=== PATIENT | female | born 1985 | race American Indian/Alaskan Native ===

== ENCOUNTER 2017-01-13 08:57 | Emergency (ER) | payer MEDICAID ==
[2017-01-13 09:17] VITALS: BP 148/108
[2017-01-13] MEDS ORDERED: MOTRIN PO ONE (10:00)
--- NOTE | 2017-01-13 10:08 | Emergency Department Report ---
ED ENT HPI - General Chief complaint: Dental/Oral Stated complaint: DENTAL PAIN Source: patient Mode of arrival: Ambulatory Limitations: No Limitations - History of Present Illness Initial comments: 31-year-old -[place] female with a past medical history of hypertension comes in today for complaint of tooth pain for about a week. Patient reports she has a history of dental caries and broken teeth. She reports she is also run out of her blood pressure medication which is Norvasc 10 mg one tablet by mouth daily. Patient reports that the swelling started last night and she feels that she may have an infection. She denies any fever chills no nausea vomiting she's able to eat. MD complaint: tooth pain -: Gradual Location: tooth # (17,18,32) Severity scale (0 -10): 6 Quality: aching, sharp Consistency: constant Improves with: none Worsens with: eating Associated Symptoms: gum swelling, toothache - Related Data Previous Rx's Medication Instructions Recorded Last Taken Type HYDROcodone/APAP 10-325 [[place] 1 each PO Q6HR PRN #20 tablet 06/09/15 Unknown Rx 10/325] Clindamycin [Clindamycin CAP] 300 mg PO Q6H #28 capsule 01/13/17 Unknown Rx Ibuprofen [Motrin 600 MG tab] 600 mg PO ONCE #30 tablet 01/13/17 Unknown Rx amLODIPine [Norvasc] 10 mg PO QHS #30 tab 01/13/17 Unknown Rx Allergies Allergy/AdvReac Type Severity Reaction Status Date / Time No Known Allergies Allergy Unverified 06/09/15 08:32 ED Dental HPI - General Chief complaint: Dental/Oral Stated complaint: DENTAL PAIN Source: patient Mode of arrival: Ambulatory Limitations: No Limitations - Related Data Previous Rx's Medication Instructions Recorded Last Taken Type HYDROcodone/APAP 10-325 [[place] 1 each PO Q6HR PRN #20 tablet 06/09/15 Unknown Rx 10/325] Clindamycin [Clindamycin CAP] 300 mg PO Q6H #28 capsule 01/13/17 Unknown Rx Ibuprofen [Motrin 600 MG tab] 600 mg PO ONCE #30 tablet 01/13/17 Unknown Rx amLODIPine [Norvasc] 10 mg PO QHS #30 tab 01/13/17 Unknown Rx Allergies Allergy/AdvReac Type Severity Reaction Status Date / Time No Known Allergies Allergy Unverified 06/09/15 08:32 ED Review of Systems ROS: Stated complaint: DENTAL PAIN Other details as noted in HPI Constitutional: denies: chills, fever Eyes: denies: eye pain, eye discharge, vision change ENT: dental pain Respiratory: denies: cough, shortness of breath, wheezing Cardiovascular: denies: chest pain, palpitations Endocrine: no symptoms reported Gastrointestinal: denies: abdominal pain, nausea, diarrhea Genitourinary: denies: urgency, dysuria, discharge Musculoskeletal: denies: back pain, joint swelling, arthralgia Skin: denies: rash, lesions Neurological: denies: headache, weakness, paresthesias ED Past Medical Hx - Past Medical History Previous Medical History?: Yes Hx Hypertension: Yes (PIH) - Surgical History Past Surgical History?: Yes Additional Surgical History: UTERINE SURGERY (HAD DOUBLE UTERUS). ECTOPIC -LEFT TUBE REMOVED - Social History Smoking Status: Current Every Day Smoker Substance Use Type: Non Opiate Pain, Prescribed - Medications Home Medications: Home Medications Medication Instructions Recorded Confirmed Last Taken Type HYDROcodone/APAP 10-325 [[place] 1 each PO Q6HR PRN #20 tablet 06/09/15 Unknown Rx 10/325] Clindamycin [Clindamycin CAP] 300 mg PO Q6H #28 capsule 01/13/17 Unknown Rx Ibuprofen [Motrin 600 MG tab] 600 mg PO ONCE #30 tablet 01/13/17 Unknown Rx amLODIPine [Norvasc] 10 mg PO QHS #30 tab 01/13/17 Unknown Rx ED Physical Exam - General Limitations: No Limitations General appearance: alert, in no apparent distress - Head Head exam: Present: atraumatic - Eye Eye exam: Present: normal appearance, PERRL, EOMI - ENT ENT exam: Present: normal exam, mucous membranes moist - Expanded ENT Exam Expanded Teeth exam: Present: dental caries, dental tenderness # (17,18 and 32 broken to the gumline), gingival enlargement Throat exam: Positive: normal inspection - Cardiovascular Cardiovascular Exam: Present: regular rate, normal rhythm, normal heart sounds ED Course Vital Signs 01/13/17 09:13 Temperature 98.2 F Pulse Rate 80 Respiratory 18 Rate Blood Pressure 148/108 O2 Sat by Pulse 100 Oximetry ED Medical Decision Making - Medical Decision Making This patient has been evaluated by this provider in fast track. Discussed patient that I will place her on ibuprofen 600 mg 1 tablet by mouth 3 times a day when necessary for pain as well as clindamycin 300 mg 1 tablet by mouth daily at bedtime dispense 28 with no refills. Also discussed patient with her blood pressure I would refill her amlodipine 10 mg 1 tablet by mouth daily at bedtime. I would give her one refill and have a referral follow-up with her primary care provider. As well as I would give her a list of community dentist that she is able to follow up with. Patient verbalized understanding Critical care attestation.: If time is entered above; I have spent that time in minutes in the direct care of this critically ill patient, excluding procedure time. ED Disposition Clinical Impression: Tooth abscess, Pain due to dental caries Disposition: DISCHARGED TO HOME OR SELFCARE Is pt being admited?: No Does the pt Need Aspirin: No Condition: Stable Instructions: Dental Caries (ED), Dental Abscess (ED) Additional Instructions: These take the antibiotics as prescribed as well as pain medicine. Please continue with the amlodipine refill prescription as well as follow-up which are primary care provider for chronic disease management. I have listed several dentists that she may be interested in for follow-up with the dental issues. Prescriptions: amLODIPine [Norvasc] 10 mg PO QHS #30 tab Clindamycin [Clindamycin CAP] 300 mg PO Q6H #28 capsule Ibuprofen [Motrin 600 MG tab] 600 mg PO ONCE #30 tablet Referrals: PRIMARY CARE, [Primary Care Provider] - 3-5 Days Forms: Work/School Release Form(ED)
== END 2017-01-13 10:19 | disposition home or self-care (01) ==
LOC: ED 08:57
DX: K04.7 Periapical abscess without sinus (principal); K02.9 Dental caries, unspecified; I10 Essential (primary) hypertension; F17.200 Nicotine dependence, unspecified, uncomplicated
CPT/HCPCS: 99282

== ENCOUNTER 2020-02-13 09:15 | Outpatient (CLI) | payer MEDICAID ==
[2020-02-13] MEDS ORDERED: BETAMET ACET/BETAMET NA PH 6 MG/ML INJ 5 ML MDV IM ONE ×2 (09:19→09:22)
== END 2020-02-13 09:36 | disposition home or self-care (01) ==
LOC: TRG 09:15 → APU 09:16 → TRG 09:36
PROVIDERS: ATTEND Obstetrics & Gynecology
DX: O36.5920 Maternal care for other known or suspected poor fetal growth, second trimester, not applicable or unspecified (principal); O47.02 False labor before 37 completed weeks of gestation, second trimester; O99.332 Smoking (tobacco) complicating pregnancy, second trimester; F17.200 Nicotine dependence, unspecified, uncomplicated; Z3A.23 23 weeks gestation of pregnancy
CPT/HCPCS: 96372; J0702

== ENCOUNTER 2020-02-14 09:56 | Outpatient (CLI) | payer MEDICAID ==
[2020-02-14] MEDS ORDERED: BETAMET ACET/BETAMET NA PH 6 MG/ML INJ 5 ML MDV IM NR (10:18)
[2020-02-14 10:38] VITALS: BP 137/96
== END 2020-02-14 10:45 | disposition home or self-care (01) ==
LOC: APU 09:56 → TRG 09:56
PROVIDERS: ATTEND Obstetrics & Gynecology
DX: O47.02 False labor before 37 completed weeks of gestation, second trimester (principal); O99.512 Diseases of the respiratory system complicating pregnancy, second trimester; J45.909 Unspecified asthma, uncomplicated; O10.912 Unspecified pre-existing hypertension complicating pregnancy, second trimester; O99.332 Smoking (tobacco) complicating pregnancy, second trimester; F17.200 Nicotine dependence, unspecified, uncomplicated; Z3A.23 23 weeks gestation of pregnancy
CPT/HCPCS: 96372; J0702

== ENCOUNTER 2021-06-25 09:14 | Emergency (ER) | payer OTHER, MEDICAID ==
[2021-06-25 10:01] VITALS: BP 173/123
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
== END 2021-06-25 11:20 | disposition home or self-care (01) ==
LOC: ED 09:14
DX: M79.18 Myalgia, other site (principal); V79.9XXA Bus occupant (driver) (passenger) injured in unspecified traffic accident, initial encounter; Y93.89 Activity, other specified; Y92.89 Other specified places as the place of occurrence of the external cause; Y99.8 Other external cause status
CPT/HCPCS: 99282

== ENCOUNTER 2021-12-29 08:32 | Emergency (ER) | payer MEDICAID, OTHER ==
--- NOTE | 2021-12-29 09:27 | Emergency Department Report ---
ED General Adult HPI - General Chief complaint: High BP Stated complaint: VISION BLURR/BP HIGH Source: patient Mode of arrival: Ambulatory Limitations: No Limitations - History of Present Illness Initial comments: 36 yo bf with pmh of htn presents to the ed for evaluation of 3 day history of blurred vision. She states that while standing at work 3 days ago, she developed blurred vision and it has been persistent since then. She denies any changes in speech or gait. She states that she had some pain to her bilateral hips whle walking this am. She states that while standing at work yesterday, she had some dizziness and tingling in her left lower leg. MD Complaint: Blurred vision -: Gradual, days(s) (3) Associated Symptoms: headaches. denies: chest pain, cough, diaphoresis, fever/chills, loss of appetite, malaise, nausea/vomiting, rash, seizure, shortness of breath, syncope, weakness - Related Data Previous Rx's Medication Instructions Recorded Last Taken Type HYDROcodone/APAP 10-325 [[place] 1 each PO Q6HR PRN #20 tablet 06/09/15 Unknown Rx 10/325] Clindamycin [Clindamycin CAP] 300 mg PO Q6H #28 capsule 01/13/17 Unknown Rx Ibuprofen [Motrin 600 MG tab] 600 mg PO ONCE #30 tablet 01/13/17 Unknown Rx amLODIPine 10 mg PO QHS #30 tab 01/13/17 Unknown Rx Ferrous Sulfate [Ferrous Sulfate 324 mg PO BID #90 tablet. 02/19/20 Unknown Rx 324 MG] Ibuprofen [Motrin 600 MG tab] 600 mg PO Q6H #30 tablet 02/19/20 Unknown Rx labetaloL [Labetalol 200mg TAB] 200 mg PO TID #90 tablet 02/19/20 Unknown Rx oxyCODONE /ACETAMINOPHEN [Percocet 1 tab PO Q6H PRN #30 tablet 02/19/20 Unknown Rx 5/325 mg] Allergies Allergy/AdvReac Type Severity Reaction Status Date / Time No Known Allergies Allergy Unverified 06/09/15 08:32 ED Review of Systems ROS: Stated complaint: VISION BLURR/BP HIGH Other details as noted in HPI ED Past Medical Hx - Past Medical History Hx Hypertension: Yes (CHTN SINCE 2009) Hx Diabetes: No Hx Deep Vein Thrombosis: No Hx Renal Disease: Yes Hx Sickle Cell Disease: No Hx Seizures: No Hx Asthma: Yes (childhood) Hx HIV: No - Surgical History Additional Surgical History: UTERINE SURGERY (HAD DOUBLE UTERUS). ECTOPIC -LEFT TUBE REMOVED - Social History Smoking Status: Current Every Day Smoker Substance Use Type: Alcohol - Medications Home Medications: Home Medications Medication Instructions Recorded Confirmed Last Taken Type HYDROcodone/APAP 10-325 [[place] 1 each PO Q6HR PRN #20 tablet 06/09/15 Unknown Rx 10/325] Clindamycin [Clindamycin CAP] 300 mg PO Q6H #28 capsule 01/13/17 Unknown Rx Ibuprofen [Motrin 600 MG tab] 600 mg PO ONCE #30 tablet 01/13/17 Unknown Rx amLODIPine 10 mg PO QHS #30 tab 01/13/17 Unknown Rx Ferrous Sulfate [Ferrous Sulfate 324 mg PO BID #90 tablet.dr 02/19/20 Unknown Rx 324 MG] Ibuprofen [Motrin 600 MG tab] 600 mg PO Q6H #30 tablet 02/19/20 Unknown Rx labetaloL [Labetalol 200mg TAB] 200 mg PO TID #90 tablet 02/19/20 Unknown Rx oxyCODONE /ACETAMINOPHEN [Percocet 1 tab PO Q6H PRN #30 tablet 02/19/20 Unknown Rx 5/325 mg] ED Physical Exam - General Limitations: No Limitations ED Course Vital Signs 12/29/21 12/29/21 09:21 14:35 Temperature 98.4 F Pulse Rate 91 H 91 H Respiratory 16 Rate Blood Pressure 142/105 Blood Pressure 134/104 [Right] O2 Sat by Pulse 99 Oximetry ED Medical Decision Making - Lab Data Result diagrams: 12/29/21 10:06 12/29/21 10:06 Critical care attestation.: If time is entered above; I have spent that time in minutes in the direct care of this critically ill patient, excluding procedure time. ED Disposition Clinical Impression: Left against medical advice Disposition: 07 LEFT AGAINST MEDICAL ADVICE Is pt being admited?: No Condition: Stable Referrals: BHANU OSHEA MD [Primary Care Provider] - 3-5 Days
[2021-12-29 10:30] LABS: Hematocrit 35.2 % (30.3-42.9); Hemoglobin 12.3 gm/dl (10.1-14.3); Mean Corpuscular HGB Conc 35 % (30-34); Mean Corpuscular Volume 100 fl (79-97); Platelet Count 146 K/mm3 (140-440); Red Blood Count 3.51 M/mm3 (3.65-5.03); Red Cell Distribution Width 12.9 % (13.2-15.2)
--- NOTE | 2021-12-29 10:30 | Cat Scan Report ---
CT HEAD WITHOUT CONTRAST INDICATION / CLINICAL INFORMATION: blurred vision. TECHNIQUE: Axial imaging performed from the skull apex through the skull base without the use of cont rast. Sagittal and coronal reformatted images. All CT scans at this location are performed using CT dose reduction for ALARA by means of automated exposure control. COMPARISON: None available. FINDINGS: CEREBRAL PARENCHYMA: No significant abnormality. No acute territorial infarct. HEMORRHAGE: None. EXTRA-AXIAL SPACES: Normal in size and morphology for the patient's age. VENTRICULAR SYSTEM: Normal in size and morphology for the patient's age. MIDLINE SHIFT OR HERNIATION: None. CEREBELLUM / BRAINSTEM: No significant abnormality. CALVARIUM: No significant abnormality. ORBITS: Normal as visualized. PARANASAL SINUSES / MASTOID AIR CELLS: Normal as visualized. SOFT TISSUES of HEAD: No significant abnormality. ADDITIONAL FINDINGS: None. IMPRESSION: Cranial CT scan within normal limits. No abnormality identified. Signer Name: Jayme Hatch Jr, MD Signed: 12/29/2021 10:25 AM Workstation Name: [id number]
[2021-12-29 11:06] LABS: Alanine Aminotransferase 63 units/L (7-56); Albumin 4.3 g/dL (3.9-5); BUN/Creatinine Ratio 8; Blood Urea Nitrogen 9 mg/dL (7-17); Calcium 9.4 mg/dL (8.4-10.2); Hemolysis Index 7
--- NOTE | 2021-12-29 12:49 | Ultrasound Report ---
ULTRASOUND OBSTETRIC INDICATION: , elevated bp. TECHNIQUE: Transabdominal and Transvaginal. COMPARISON: None available. 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 GESTATIONAL SAC: Well-defined oval shape and intrauterine in location in the right uterine horn. The sac measures up to 0.95 cm, consistent with an estimated age of 5 weeks 5 days. YOLK SAC: Not seen. EMBRYO/FETUS: Not seen. ADNEXA: A 1.5 cm dominant follicle versus corpus luteal cyst is seen in the right ovary. No other sig nificant abnormality. FREE FLUID: None. ADDITIONAL FINDINGS: None. 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 Please correlate with beta hCG level. Close clinical and imaging follow-up is re commended. Signer Name: David Lozano MD Signed: 12/29/2021 12:42 PM Workstation Name: [id number]
[2021-12-29 14:35] VITALS: BP 134/104
--- NOTE | 2022-01-01 13:59 | Electrocardiograph Report ---
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
== END 2021-12-29 16:50 | disposition left against medical advice (07) ==
LOC: ED 08:32
DX: Z32.01 Encounter for pregnancy test, result positive (principal); H53.8 Other visual disturbances; R51.9 Headache, unspecified; I10 Essential (primary) hypertension; J45.909 Unspecified asthma, uncomplicated; F17.200 Nicotine dependence, unspecified, uncomplicated; Z72.89 Other problems related to lifestyle; Z79.899 Other long term (current) drug therapy
CPT/HCPCS: 36415; 70450; 76801; 76817; 80053; 84484; 84703; 85027; 93005; 99284; J3490; 99283

== ENCOUNTER 2022-01-12 15:33 | Emergency (ER) | payer MEDICAID ==
[2022-01-12] MEDS ORDERED: hydrALAZINE 20 MG/1 ML INJ IV ONE (16:28)
--- NOTE | 2022-01-12 16:28 | Emergency Department Report ---
ED General Adult HPI - General Chief complaint: High BP Stated complaint: HIGH BLOOD PRESSURE PUI?: No Time Seen by Provider: 01/12/22 15:45 Source: EMS Mode of arrival: Stretcher Limitations: No Limitations - History of Present Illness Initial comments: Patient is a 36-year-old female that presents emergency room with complaints of elevated blood pressure. Patient states she is 5 weeks . Patient states she went to the clinic and they sent to the urgent care because her blood pressure was so high. Patient states she has not taken blood pressure medications for 6 months. Patient states that he does not have any chest pain or shortness of breath. Patient denies headache. Patient denies blurry vision. Patient denies fever and chills. Patient states she needs to get her blood pressure down so she can go through with the . Patient states she took labetalol and Norvasc in the past. Patient denies recent travel. Patient denies recent international travel. Patient denies exposure to the novel coronavirus. Patient denies sick contacts. Patient denies fever and chills. Patient denies cough. Patient denies diarrhea. Patient denies coming in contact with anybody with symptoms of the novel coronavirus. -: Sudden Severity scale (0 -10): 0 Improves with: medication Worsens with: eating, movement Associated Symptoms: denies other symptoms. denies: confusion, chest pain, cough, diaphoresis, fever/chills, headaches, loss of appetite, malaise, nausea/vomiting, seizure, shortness of breath, syncope, weakness - Related Data Previous Rx's Medication Instructions Recorded Last Taken Type HYDROcodone/APAP 10-325 [Mon[place]gut 1 each PO Q6HR PRN #20 tablet 06/09/15 Unknown Rx 10/325] Clindamycin [Clindamycin CAP] 300 mg PO Q6H #28 capsule 01/13/17 Unknown Rx Ibuprofen [Motrin 600 MG tab] 600 mg PO ONCE #30 tablet 01/13/17 Unknown Rx amLODIPine 10 mg PO QHS #30 tab 01/13/17 Unknown Rx Ferrous Sulfate [Ferrous Sulfate 324 mg PO BID #90 tablet. 02/19/20 Unknown Rx 324 MG] Ibuprofen [Motrin 600 MG tab] 600 mg PO Q6H #30 tablet 02/19/20 Unknown Rx oxyCODONE /ACETAMINOPHEN [Percocet 1 tab PO Q6H PRN #30 tablet 02/19/20 Unknown Rx 5/325 mg] labetaloL [Labetalol 200mg TAB] 200 mg PO BID #30 tablet 01/12/22 Unknown Rx Allergies Allergy/AdvReac Type Severity Reaction Status Date / Time No Known Allergies Allergy Verified 01/12/22 15:41 ED Review of Systems ROS: Stated complaint: HIGH BLOOD PRESSURE Other details as noted in HPI Constitutional: denies: chills, fever Eyes: denies: eye pain, eye discharge, vision change ENT: denies: ear pain, throat pain Respiratory: denies: cough, shortness of breath, wheezing Cardiovascular: denies: chest pain, palpitations Endocrine: no symptoms reported Gastrointestinal: denies: abdominal pain, nausea, diarrhea Genitourinary: denies: urgency, dysuria, discharge Musculoskeletal: denies: back pain, joint swelling, arthralgia Skin: denies: rash, lesions Neurological: denies: headache, weakness, paresthesias Psychiatric: denies: anxiety, depression Hematological/Lymphatic: denies: easy bleeding, easy bruising ED Past Medical Hx - Past Medical History Hx Hypertension: Yes (CHTN SINCE 2009) Hx Diabetes: No Hx Deep Vein Thrombosis: No Hx Renal Disease: Yes Hx Sickle Cell Disease: No Hx Seizures: No Hx Asthma: Yes (childhood) Hx HIV: No - Surgical History Additional Surgical History: UTERINE SURGERY (HAD DOUBLE UTERUS). ECTOPIC -LEFT TUBE REMOVED - Social History Smoking Status: Current Every Day Smoker Substance Use Type: Alcohol - Medications Home Medications: Home Medications Medication Instructions Recorded Confirmed Last Taken Type HYDROcodone/APAP 10-325 [[place]gut 1 each PO Q6HR PRN #20 tablet 06/09/15 Unknown Rx 10/325] Clindamycin [Clindamycin CAP] 300 mg PO Q6H #28 capsule 01/13/17 Unknown Rx Ibuprofen [Motrin 600 MG tab] 600 mg PO ONCE #30 tablet 01/13/17 Unknown Rx amLODIPine 10 mg PO QHS #30 tab 01/13/17 Unknown Rx Ferrous Sulfate [Ferrous Sulfate 324 mg PO BID #90 tablet.dr 02/19/20 Unknown Rx 324 MG] Ibuprofen [Motrin 600 MG tab] 600 mg PO Q6H #30 tablet 02/19/20 Unknown Rx oxyCODONE /ACETAMINOPHEN [Percocet 1 tab PO Q6H PRN #30 tablet 02/19/20 Unknown Rx 5/325 mg] labetaloL [Labetalol 200mg TAB] 200 mg PO BID #30 tablet 01/12/22 Unknown Rx ED Physical Exam - General Limitations: No Limitations General appearance: alert, in no apparent distress - Head Head exam: Present: atraumatic, normocephalic - Eye Eye exam: Present: normal appearance - ENT ENT exam: Present: mucous membranes moist - Neck Neck exam: Present: normal inspection - Respiratory Respiratory exam: Present: normal lung sounds bilaterally. Absent: respiratory distress - Cardiovascular Cardiovascular Exam: Present: regular rate, normal rhythm. Absent: systolic murmur, diastolic murmur, rubs, gallop - GI/Abdominal GI/Abdominal exam: Present: soft, normal bowel sounds - Extremities Exam Extremities exam: Present: normal inspection - Back Exam Back exam: Present: normal inspection - Neurological Exam Neurological exam: Present: alert, oriented X3 - Psychiatric Psychiatric exam: Present: normal affect, normal mood - Skin Skin exam: Present: warm, dry, intact, normal color. Absent: rash ED Course Vital Signs 01/12/22 01/12/22 01/12/22 15:40 15:53 16:00 Temperature 98.0 F Pulse Rate 70 78 74 Respiratory 16 19 14 Rate Blood Pressure Blood Pressure 230/146 [Right] O2 Sat by Pulse 100 100 99 Oximetry 01/12/22 01/12/22 01/12/22 16:02 16:05 16:16 Temperature Pulse Rate 78 65 Respiratory 16 15 Rate Blood Pressure 205/132 Blood Pressure 215/141 [Right] O2 Sat by Pulse 100 100 100 Oximetry 01/12/22 01/12/22 01/12/22 16:30 16:46 16:49 Temperature Pulse Rate 72 72 Respiratory 15 19 Rate Blood Pressure 202/130 212/138 212/138 Blood Pressure [Right] O2 Sat by Pulse 100 100 Oximetry 01/12/22 01/12/22 01/12/22 17:00 17:16 17:30 Temperature Pulse Rate 102 H 94 H 94 H Respiratory 14 15 16 Rate Blood Pressure 172/119 159/102 146/96 Blood Pressure [Right] O2 Sat by Pulse 98 100 100 Oximetry 01/12/22 01/12/22 17:43 18:15 Temperature Pulse Rate 92 H Respiratory 18 Rate Blood Pressure 146/96 Blood Pressure 147/92 [Right] O2 Sat by Pulse 100 Oximetry - Reevaluation(s) Reevaluation #1: Patient's blood pressure is 180/120 after the hydralazine. Patient denies pain. Patient denies headache. Patient denies any symptoms. 01/12/22 17:05 Reevaluation #2: Patient's blood pressure is better. Patient denies chest pain. Patient denies shortness of breath. Patient vital signs stable. 01/12/22 17:46 Reevaluation #3: I discussed all results and clinical findings with patient. I discussed plan of care with patient. Patient agrees with plan of care. Patient is stable for discharge. Patient will be discharged home. Patient given discharge instructions. Patient voiced understanding of discharge instructions. 01/12/22 18:06 ED Medical Decision Making - Lab Data Result diagrams: 01/12/22 16:40 01/12/22 16:40 - EKG Data -: EKG Interpreted by Me EKG shows normal: sinus rhythm, axis, intervals, QRS complexes, ST-T waves Rate: normal - Medical Decision Making Patient is a 36-year-old female that presents emergency room for elevated blood pressure. Patient states she is 5 weeks . Patient states she was at the clinic and her blood pressure was too high to have the so they sent the clinic sent her to urgent care. Patient was seen at the urgent care and her blood pressure was 230/146 and the urgent care center here. Patient denies chest pain. Patient denies any secondary symptoms. Patient states she had a history of high blood pressure been out of her medication for 6 months. Patient was given IV hydralazine in the ER. Patient blood pressure responded well. Patient's blood pressure is 150/100 upon discharge. Patient's labetalol was refilled. Patient is labs are essentially unremarkable. Patient instructed take a vitamin until she completes the . Patient stable for discharge. Patient not require any further emergency medical service. Patient not require inpatient services. I discussed all results and clinical findings with patient. I discussed plan of care with patient. Patient agrees with plan of care. Patient is stable for discharge. Patient will be discharged home. Patient given discharge instructions. Patient voiced understanding of discharge instructions. - Differential Diagnosis Hypertension, , noncompliance Critical Care Time: Yes Critical care time in (mins) excluding proc time.: 35 Critical care attestation.: If time is entered above; I have spent that time in minutes in the direct care of this critically ill patient, excluding procedure time. Critical Care Time: 35 minutes ED Disposition Clinical Impression: Hypertensive emergency, Noncompliance Hypertension Qualifiers: Hypertension type: unspecified Qualified Code(s): I10 - Essential (primary) hypertension Qualifiers: Weeks of gestation: less than 8 weeks Qualified Code(s): Z3A.01 - Less than 8 weeks gestation of Disposition: HOME / SELF CARE / HOMELESS Is pt being admited?: No Does the pt Need Aspirin: No Condition: Stable Instructions: First Trimester of , [id number], Eating Plan for Women, Managing Your Hypertension, Hypertension (ED) Additional Instructions: Patient to follow-up with primary care in 2 to 3 days. Patient to follow-up with [facility] in 2 to 3 days. Patient to rest. Patient to increase water. Patient to avoid strenuous exercise or heavy lifting until cleared by [facility] CO[facility]. Patient to take Tylenol as needed for pain. Patient to take meds as directed. Patient to return to the ER if condition worsens, changes or new symptoms arise. Prescriptions: labetaloL [Labetalol 200mg TAB] 200 mg PO BID #30 tablet Referrals: BHANU OSHEA MD [Staff Physician] - 2-3 Days MANSI FREDERICK MD [Staff Physician] - 2-3 Days Time of Disposition: 17:56
[2022-01-12 17:18] LABS: Hematocrit 33.9 % (30.3-42.9); Hemoglobin 11.3 gm/dl (10.1-14.3); Mean Corpuscular HGB Conc 34 % (30-34); Mean Corpuscular Volume 103 fl (79-97); Platelet Count 116 K/mm3 (140-440); Red Blood Count 3.28 M/mm3 (3.65-5.03); Red Cell Distribution Width 12.6 % (13.2-15.2)
[2022-01-12 17:33] LABS: Alanine Aminotransferase 84 units/L (7-56); Albumin 4.2 g/dL (3.9-5); BUN/Creatinine Ratio 16; Blood Urea Nitrogen 13 mg/dL (7-17); Calcium 9.4 mg/dL (8.4-10.2); Hemolysis Index 2
[2022-01-12 18:36] VITALS: BP 147/92
--- NOTE | 2022-01-15 13:14 | Electrocardiograph Report ---
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
== END 2022-01-12 18:15 | disposition home or self-care (01) ==
LOC: ED 15:33
DX: O16.1 Unspecified maternal hypertension, first trimester (principal); Z3A.01 Less than 8 weeks gestation of pregnancy; F17.200 Nicotine dependence, unspecified, uncomplicated; F10.20 Alcohol dependence, uncomplicated
CPT/HCPCS: 36415; 80053; 84702; 85027; 93005; 96374; 99284; J0360